=== PATIENT | female | born 1935 | race Caucasian/White ===

== ENCOUNTER 2016-06-18 10:59 | Inpatient (IN) | payer OTHER, MEDICAID ==
[~2016-06-18] VITALS: Ht 154.9 cm; Wt 64.2 kg
[~2016-06-18 10:59] MED LIST: APAP/HYDROCODON1 T13 PO; BENAZEPRIL HYDR40 M1 PO; DEC150 PO; ECO81 PO; FER300 PO; LIPI20 PO; METFORMIN HCL500 MG PO; PROMETHAZI6.25 MG/5 PO; THERAGRAN-M1 TA4 PO; TRAMADOL HCL50 MG PO
--- NOTE | 2016-06-18 11:11 | NUR ---
PT WHEELED TO ORTHO ROOM
--- NOTE | 2016-06-18 11:21 | NUR ---
81Y/O FEMALE BIB WHEELED TO BED ORTHO, WITH SON, REPORTING CONFUSION AND WEAKNESS SINCE YESTERDAY. PT IS WHEELCHAIR BOUND DUE TO BILAT KNEE PAIN. PT IS ORIENTED TO NAME ONLY AT THIS TIME. PT IS CONCERNED ABOUT SOILING HERSELF AND REQUESTING A PAMPER. SON AT BEDSIDE. DR WALDO LAMBED MSE
[2016-06-18 11:43] LABS: BASOPHIL % 0.6 % (0-2); PLATELET COUNT 280 x10^3mcL (130-400)
[2016-06-18 11:44] LABS: RED CELL DISTRIBUTION WIDTH 15.4 % (11.5-14.5)
[2016-06-18 11:50] LABS: CALCIUM 8.8 mg/dL (8.5-10.1); CARBON DIOXIDE 26.8 mmol/L (21-32); CHLORIDE SERUM 94 mmol/L (98-107); CREATININE SERUM 0.6 mg/dL (0.6-1.0); GLUCOSE SERUM 127 mg/dL (74-106); POTASSIUM SERUM 4.6 mmol/L (3.5-5.1); SODIUM SERUM 128 mmol/L (136-145)
[2016-06-18 11:54] LABS: ALBUMIN 3.9 g/dL (3.4-5.0); ALKALINE PHOSPHATASE 162 U/L (46-116); ALT/SGPT 17 U/L (14-59); AST/SGOT 25 U/L (15-37); BILIRUBIN TOTAL 0.54 mg/dL (0.20-1.00)
--- NOTE | 2016-06-18 12:13 | NUR ---
INDWELLING ARZOLA CATHETER INSERTED USING STERILE TECHNIQUE. PT TOLERATED WELL. URINE SAMPLE SENT TO LAB.
[2016-06-18 12:47] LABS: microscopic required? YES; urine erythrocyte TRACE (NEGATIVE)
[2016-06-18] MEDS ORDERED: NORCO1 TA2 PO (13:25)
[2016-06-18] MEDS ORDERED: AYR BABY SALINE30 ML (13:25)
--- NOTE | 2016-06-18 13:48 | NUR ---
REPORT GIVEN TO LA NENA ROSENTHAL FOR PT TO GO TO TELE BED
[2016-06-18 14:39] VITALS: BP 110/53
[2016-06-18 14:47] LABS: PHOSPHOROUS 3.2 mg/dL (2.5-4.9)
[2016-06-18 14:52] LABS: CHOLESTEROL/HDL RATIO 3.1; MAGNESIUM 1.4 mg/dL (1.8-2.4)
[2016-06-18 14:55] LABS: T3 TOTAL 0.74 ng/mL
[2016-06-18 14:56] LABS: AMPHETAMINE QUAL UR NONE DETECTED (NEG <=1000)
--- NOTE | 2016-06-18 14:56 | NUR ---
RECEIVED PATIENT FROM ED VIA GUERNEY, PATIENT IN NO ACUTE DISTRESS, C/O PAIN TO BLE WILL MEDICATE ORDERED, FAMILY AT BEDSIDE, PATIENT WITH ARZOLA CATH DRAINING YELLOW URINE TO GRAVITY, ORIENTED PATIENT TO ROOM AND SURROUNDINGS, BED IN LOW POSITION, BED RAILS UP X 2, CALL LIGHT WIHTIN REACH, WILL ENDORSE CARE TO TONJA.
[2016-06-18 14:57] LABS: FREE T4 1.17 ng/dL (0.76-1.46); T4(THYROXINE) 10.8 ug/dL (4.7-13.3)
--- NOTE | 2016-06-18 15:45 | NUR ---
PATIENT HAS ARZOLA PLACED IN ER, DRAINING YELLOW URINE. SPOKE TO DR. BARRERA REGARDING NECESSITY OF ARZOLA. PER PATIENT AND PATIENT'S SON ABLE, PATIENT DOES NOT HAVE URINARY RETENTION OR COMPLAINTS. DR. BARRERA STATES HE WILL PLACE ORDER TO D/C. WILL FOLLOW UP.
[2016-06-18 17:13] VITALS: BP 105/53
--- NOTE | 2016-06-18 17:27 | NUR ---
IN TO SEE PATIENT AT THIS TIME. PATIENT STATES PAIN TO BLE HAS DECREASED. PATIENT IS EATING DINNER. SON IS AT THE BEDSIDE. WILL CONTINUE TO MONITOR.
--- NOTE | 2016-06-18 18:20 | NUR ---
ARZOLA REMOVED AT THIS TIME. PATIENT TOLERATED WELL. FAMILY AT THE BEDSIDE.
--- NOTE | 2016-06-18 19:30 | NUR ---
RECEIVED REPORT FROM ARIADNA EVANGELISTA. PT RESTING COMFORTABLY IN BED, IN NO ACUTE DISTRESS OR DISCOMFORT. AAOX4. DENIES OF MARTE/DIZZINESS. ON TELE MON 21 ST. DENIES OF ANY CHEST DISCOMFORT. PER PULSES MOD. NEG ON EDEMA. SCDS APPLIED. IN RA WITH SAT OF 96%. BREATHING EVENLY AND UNLABORED. NO SOB NOTED. LUNGS CTA. BS ACTIVE. ABD SOFT AND NON DISTENDED. LAST BM 06/17/16. PT INTERM URINE INCONTINENT. WILL BE PROVIDED WITH BEDPAN NEEDED. WEAKNESS ON BLE. FALL RISK PT. SKIN DRY AND INTACT. DENIES OF PAIN AT THIS TIME. IV ON RAC PATENT. FAMILY IS ON THE BEDSIDE. SAFETY MEASURES ENSURED. INSTRUCTED PT TO CALL FOR ANY NEEDS/ASSISTANCE. CALL LIGHT WITHIN REACH. WILL CONT TO MONITOR PT.
[2016-06-18 22:00] VITALS: BP 91/42
[2016-06-19] VITALS (7 sets, daily range): BP systolic 101–132; BP diastolic 43–65
--- NOTE | 2016-06-19 01:14 | NUR ---
500 CC BOLUS STARTED PER ORDER WITH BP OF 104/43 (63) MAP AND HR OF 83.
--- NOTE | 2016-06-19 02:15 | NUR ---
500 CC OF BOLUS ADMINISTRATION DONE. BP AT 101/52 (68) MAP, 85 HR. PT IN NO ACUTE DISTRESS. SAFETY MEASURES ENSURED. CALL LIGHT WITHIN REACH.
--- NOTE | 2016-06-19 05:39 | NUR ---
PT SLEPT COMFORTABLY THROUGH OUT THE NIGHT. WAS IN NO ACUTE DISTRESS OR DISCOMFORT. SAFETY MEASURES ENSURED. CALL LIGHT WITHIN REACH.
[2016-06-19 07:09] LABS: BASOPHIL % 0.8 % (0-2); PLATELET COUNT 215 x10^3mcL (130-400)
[2016-06-19 07:12] LABS: RED CELL DISTRIBUTION WIDTH 15.2 % (11.5-14.5)
--- NOTE | 2016-06-19 07:30 | NUR ---
RECEIVED PATIENT AWAKE AND ALERT DENIES PAIN, NO ACUTE DISTRESS NOTED, SPEAKING ONLY. ABLE TO ASKING FOR NEEDS. IV SITE LEAKING D/C AND INTACT. WILL RESTART AFTER PATIENT FINISH EATING, REPOSITION UP IN BED WITH 2 MAX ASSIST, CALL LIGHT WITHIN REACH.
[2016-06-19 07:33] LABS: CARBON DIOXIDE 23.5 mmol/L (21-32); CHLORIDE SERUM 101 mmol/L (98-107); CREATININE SERUM 0.8 mg/dL (0.6-1.0); GLUCOSE SERUM 96 mg/dL (74-106); MAGNESIUM 2.4 mg/dL (1.8-2.4); PHOSPHOROUS 3.8 mg/dL (2.5-4.9); POTASSIUM SERUM 4.1 mmol/L (3.5-5.1); SODIUM SERUM 133 mmol/L (136-145)
--- NOTE | 2016-06-19 08:25 | NUR ---
PATIENT SIT UP IN BED EATING AT THIS TIME, DTR REMAIN AT BEDSIDE. DR. CASTRO AND TEAM ROUND, ANSWER ALL QUESTIONS PER PT'S CONCERN AND PER MD WILL ORDER PT EVAL AND TX.
--- NOTE | 2016-06-19 09:49 | NUR ---
PATIENT RESTING IN BED NO DISTRESS NOTED, DUE MEDS GIVEN, PATIENT ASKING FOR PAIN MED FOR RLE 5/10, NORCO 1 TAB PO GIVEN, REPOSITIONED FOR COMFORT, CONT TO MONITOR.
--- NOTE | 2016-06-19 11:17 | NUR ---
NEW IV RESTART TO LFA # 22 BY STUDENT WITH INSTRUCTOR, ROCEPHIN IVPB GIVEN, PATIENT RESTING IN BED NO COMPLAINTS. FAMILY MEMBERS AT BEDSIDE.
--- NOTE | 2016-06-19 14:15 | NUR ---
PATIENT RESTING IN BED NO DISTRESS NOTED, PAIN IS RELIEF PER SON. NEEDS ANTICIPATED. CONT TO MONITOR.
--- NOTE | 2016-06-19 15:44 | NUR ---
P.T. NOTES/INITIAL EVAL 2797-7612 Pt WAS ADMITTED DUE TO ANS D/O; Pt LIVES IN 1-TERRANCE HOUSE W/ SON (CAREGIVER), NON AMBULATORY, ASSISTED IN W/C TRANSFERS & SOME ADLs, HOMEMAKER; HAS HOSP BED, W/C, S/C, BSC, FWW. S:Pt WAS SEEN AWAKE & ALERT IN BED, SPEAKS IRISH, ABLE TO FOLLOW SIMPLE COMMANDS W/ TACTILE & GESTURE CUES, PREFERS SON TO TRANSLATE AT THIS TIME, SON IN ROOM & SUPPORTIVE; NO C/O PAIN OR DIZZINESS AT THIS TIME; ORIENTED x3, AGREEABLE & COOPERATIVE W/ P.T.; OWN W/C IN ROOM. O:BED MOBILITY: MIN ASSIST IN SUPINE TO SIT, MOD ASSIST+2 PERSONS IN SCOOTING TOWARDS HOB; CG ASSIST IN SCOOTING IN SITTING TOWARDS EOB TRANSFERS: UNABLE GAIT: NON AMBU Pt ASSISTED TO BED SAFELY; HOB ELEVATED, CALL JO, PHONE, TABLE IN REACH; BED ALARM ON; DECLINED SCDs AT THIS TIME, ON ROOM AIR; APPRECIATIVE. A:Pt DEMO GOOD RESPONSE TO P.T. SESSION; FALL RISK; Pt EDUC ON SAFE TASK SEQUENCING, HEP, USE OF CALL LIGHT FOR NURSE ASSIST, DEMO UNDERSTANDING, FAIR FOLLOW THRU. P:CONT PT ONCE DAILY 5X/WK X 1 WK; POC & DX DISCUSSED W/ MANAGER GAMES; WILL BENEFIT W/ P.T. DURING ACUTE STAY; 2-PERSON ASSIST FOR OOB ACT AT THIS TIME. EVAL23,2PA GCODES:[id number] [facility] REACH SCORE:22 inches [id number] Pt WAS GIVEN THERA EXER UE/LE X 10 REPS; CONT PT EX
--- NOTE | 2016-06-19 16:55 | NUR ---
PATIENT SON ASSIST PATIENT TO BATHROOM AND BACK TO BED VIA WHEEL CHAIR, MAX 2 KEG WASHER, REPOSITIONED IN BED, TECH WILL PERFORM ECHO ON PATIENT AT THIS TIME, BS 121 NO COVERAGE NEEDED. CONT TO MONITOR.
--- NOTE | 2016-06-19 17:20 | NUR ---
PATIENT RESTING IN BED NO COMPLAINTS, TECH IN ROOM GET READY TO PERFORM ECHO, SON AT BEDSIDE ASSISTING WITH TRANSLATION IN ITALIAN, DUE MEDS GIVEN, NEEDS ANTICIPATED, CONT TO MONITOR.
--- NOTE | 2016-06-19 20:00 | NUR ---
PT A/A/O X4. DENIES DIZZINESS AND HEADACHE. BREATH SOUNDS DIMINISHED CHESTER BASES. BREATHING EVEN AND UNLABORED ON ROOM AIR. DENIES CHEST PAIN AND PRESSURE. BOWEL SOUNDS ACTIVE. NO C/O N/V AND ABD PAIN. IV INTACT ON THE LEFT FOREARM INFUSING WITH NS AT 100 ML/HR. MADE PT COMFORTABLE. PLACED CALL LIGHT WITH IN REACH. WILL CONTINUE TO MONITOR.
--- NOTE | 2016-06-20 01:16 | NUR ---
PT RESTING WITH EYES CLOSED. NO DISTRESS AND DISCOMFORT NOTED. MADE PT COMFORTABLE. WILL CONTINUE TO MONITOR.
--- NOTE | 2016-06-20 05:39 | NUR ---
PT QUIET AND RESTING. NO SIGNIFICANT CHANGES NOTED THUS FAR. IV INTACT AND INFUSING ORDERED. MADE PT COMFORTABLE. WILL ENDORSE TO THE AM NURSE ACCORDINGLY.
[2016-06-20 06:33] VITALS: BP 130/66
[2016-06-20 07:10] LABS: BASOPHIL % 1.3 % (0-2); PLATELET COUNT 208 x10^3mcL (130-400)
[2016-06-20 07:12] LABS: CALCIUM 8.1 mg/dL (8.5-10.1); CARBON DIOXIDE 23.6 mmol/L (21-32); CHLORIDE SERUM 105 mmol/L (98-107); CREATININE SERUM 0.7 mg/dL (0.6-1.0); GLUCOSE SERUM 85 mg/dL (74-106); POTASSIUM SERUM 4.5 mmol/L (3.5-5.1); SODIUM SERUM 136 mmol/L (136-145)
--- NOTE | 2016-06-20 07:20 | NUR ---
RECEIVED PATIENT AWAKE AND ALERT IN BED, DENIES PAIN, NO ACUTE DISTRESS NOTED, IV INTACT, NEEDS ANTICIPATED. CALL LIGHT WITHIN REACH.
[2016-06-20 07:22] LABS: RED CELL DISTRIBUTION WIDTH 15.3 % (11.5-14.5)
--- NOTE | 2016-06-20 08:20 | NUR ---
DR CASTRO AND TEAM ROUND AT THIS TIME, DISCUSS POC AND TX WITH PATIENT AND GRAND-DTR AT BEDSIDE. PLAN TO CONT PT TX.
--- NOTE | 2016-06-20 09:28 | NUR ---
MEDICATE PATIENT FOR PAIN PRIOR WORKING WITH PT. SON AT BEDSIDE WITH PATIENT.
[2016-06-20 10:18] VITALS: BP 119/62
--- NOTE | 2016-06-20 11:11 | NUR ---
PT working with patient at this time, checking for tele box, per family nurse already removed.
--- NOTE | 2016-06-20 13:14 | NUR ---
PT HERE TO ASSIST PATIENT BACK TO BED FROM WHEEL CHAIR, DUE MEDS GIVEN, CONT TO MONITOR. CALL LIGHT WITHIN REACH.
--- NOTE | 2016-06-20 14:40 | NUR ---
ASSISTING PATIENT ON BED, PATIENT INCONT OF URINE. INSTRUCT TO CALL NURSE WHEN DONE. GRAND-DTR REMAIN AT BEDSIDE.
--- NOTE | 2016-06-20 14:47 | NUR ---
PT NOTES TIME: [id number] TE28',TA10',2PA((2)SAFETY/SUPPORT),PVE((1)STANDBY SAFETY/SETUP) S:CHART REVIEWED AND CLEARED FOR PT BY RN. PATIENT SUPINE RESTING TALKING ON PHONE. PATIENT DENIES PAIN OR SOB AT THIS TIME AND IS AGREEABLE TO PARTICIPATE IN THERAPY. IV LINE INTACT. O:BED: MODx2/MAX SUPINE<->SIT WITH VC'S AND TC'S FOR PROPER HAND PLACEMENT/SEQUENCING TO MAINTAIN PROPER BODY MECHANICS. NO DIZZINESS EXPRESSED. BP 114/42, SPO2 ON RA 98%, HR 100. TRANSFER: MAXx2 SIT<->STAND WITH PIVOT TRANSFER TO W/C. VC'S PROVIDED TO SAFELY MAINTAIN URPIGHT POSTURE AND MOD ASSIST TO BRACE BILATERAL KNEES. GAIT: NON AMB, UNABLE TO MAINTAIN UPRIGHT STANCE. TE: SEATED BICYCLE KICKS, ANKLE ROM IN ALL PLANES, SHOULDER SHRUGS/CIRCLES, GLUTEAL SETS, LATERAL WEIGHSHIFTING TO PRESSURE RELIEF, FORWARD REACH WHILE CROSSING MIDLINE TO ENCOURAGE SEATED CORE STABILITY (ALL TOLERATED). PATIENT EDUCATED WITH HEP, TRANSFERS, ENERGY CONSERVATION, POSTURAL AWARENESS WITH VERBAL UNDERSTANDING. PATIENT MADE COMFORTABLE IN W/C WITH TRAY AND CALL LIGHT IN REACH. LEFT IN CARE OF GRAND-DAUGHTER, TRAY AND CALL LIGHT IN REACH. PATIENT COOPERATIVE AND APPRECIATIVE OF PT CARE, RN MADE AWARE. P:CONT WITH POC, PROGRESS DISCUSSED WITH PRIMARY PT. RETURN BTB TIME: 3431-6532 TA15',2PA((1)SAFETY/SUPPORT) RETURNED TO PATIENTS ROOM TO ASSIST PATIENT SAFETY BTB. PATIENT ASSISTED WITH MAXx2 ASSIST WITH FWW BTB. VC'S AND TC'S PROVIDED TO MAINTAIN SAFETY AND PACING. NO PAIN OR DISCOMFORT EXPRESSED BY PATIENT ONLY FATIGUE/SLEEPY. PATIENT MADE COMFORTABLE IN BED WITH ALL LINES INTACT, TRAY AND CALL LIGHT IN REACH, NO FAMILY AT BEDSIDE. PATIENT COOPERATIVE AND APPRECIATIVE OF PT CARE, RN MADE AWARE.
--- NOTE | 2016-06-20 17:11 | NUR ---
PATIENT RESTING IN BED OFFERED PAIN MED PATIENT REFUSED, DUE MEDS GIVEN, SON REMAIN AT BEDSIDE, RFID SYSTEMS ARCHITECT IN ROOM TO TAKING VITAL. CALL LIGHT WITHIN REACH.
[2016-06-20 17:51] VITALS: BP 131/77
--- NOTE | 2016-06-20 19:35 | NUR ---
RECEIVED Pt AAOX3 CALM AND COOPERATIVE WITH CARE. DENIES ANY CHEST PAIN. LUNG SOUNDS ARE CTA, DIMINISHED BILATERALLY. PULSE OX IS 96% ON ROOM AIR. ACTIVE BOWEL SOUNDS X4 QUADS. DENIES ANY ABD DISCOMFORT. IV SITE TO LFA IS PATENT. C/O BILATERAL SHOULDER AND BLE PAIN AT 6/10. SKIN IS INTACT. VOIDS FREELY WITH INCONTINENCE EPISODES. RADIAL AND PEDAL PULSES ARE PRESENT. MOVES ALL EXTREMITIES, NO EDEMA NOTED. RE-ORIENTED TO ROOM AND CALL LIGHT SYSTEM WITHIN EASY REACH. WILL CONTINUE TO MONITOR.
[2016-06-20 21:16] VITALS: BP 187/61
--- NOTE | 2016-06-20 23:24 | NUR ---
Pt RESTING COMFORTABLY. CALL LIGHT WITHIN REACH. WILL CONTINUE TO MONITOR.
--- NOTE | 2016-06-21 02:34 | NUR ---
Pt RESTING QUIETLY. WILL CONTINUE TO MONITOR.
--- NOTE | 2016-06-21 05:33 | NUR ---
NO SIGNIFICANT CHANGES NOTED OVER NIGHT. NO FURTHER C/O LEG OR SHOULDER PAIN. VOIDED FREELY, NO BM. IV SITE PATENT. SAFETY AND COMFORT MEAUSURES REMAIN IN PLACE. WILL CONTINUE TO MONITOR.
[2016-06-21 05:41] VITALS: BP 136/60
--- NOTE | 2016-06-21 06:08 | NUR ---
C/O BILATERAL LEG PAIN AT 6/10, MEDICATED WITH NORCO PO. WILL CONTINUE TO MONITOR.
[2016-06-21 06:24] LABS: BASOPHIL % 0.9 % (0-2); PLATELET COUNT 203 x10^3mcL (130-400)
[2016-06-21 06:28] LABS: CALCIUM 7.8 mg/dL (8.5-10.1); CARBON DIOXIDE 22.7 mmol/L (21-32); CHLORIDE SERUM 105 mmol/L (98-107); CREATININE SERUM 0.7 mg/dL (0.6-1.0); GLUCOSE SERUM 77 mg/dL (74-106); MAGNESIUM 1.4 mg/dL (1.8-2.4); POTASSIUM SERUM 4.1 mmol/L (3.5-5.1); SODIUM SERUM 136 mmol/L (136-145)
[2016-06-21 06:32] LABS: RED CELL DISTRIBUTION WIDTH 15.3 % (11.5-14.5)
--- NOTE | 2016-06-21 06:53 | NUR ---
I HAVE REVIEWED THE DATA COLLECTION BY SHER (NAME):MEDARDO AMBRIZ ENTERED ON (DATE/TIME):06/21/16 @ 1999 I CONCUR WITH THE DATA AND ANY EXCEPTIONS OR COMMENTS ARE LISTED BELOW:
--- NOTE | 2016-06-21 06:59 | NUR ---
PAGEGATED DR. ORTIZ REGARDING MAG 1.4. WILL ENDORSE TO INCOMING NURSE FOR FOLLOW UP.
--- NOTE | 2016-06-21 07:45 | NUR ---
RECEIVED THE PATIENT AWAKE AND ORIENTED TO PERSON AND PLACE ONLY AT THIS TIME. REORIENTED PATIENT TO TIME. PATIENT DENIED SHORTNESS OF BREATH OR NAUSEA/VOMITING. PATIENT STATED HAVING ACHING TO RLE BUT TOLERABLE AT THIS TIME. IVF NS VIA H/L TO LFA. CALL LIGHT WITHIN REACH. SIDE RAILS UP X3. BED ALARM WAS ON.
--- NOTE | 2016-06-21 08:03 | NUR ---
DR. CASTRO AND THE TEAM WERE MAKING ROUND TO SEE THE PATIENT. THE CARE PLAN WAS EXPLAINED TO THE PATIENT IN KOREAN VIA MAGENTO DEVELOPER, BECKIE Johnson RN. THE PATIENT VERBALIZED UNDERSTANDING.
[2016-06-21 10:28] VITALS: BP 98/57
[2016-06-21 14:13] VITALS: BP 98/57
--- NOTE | 2016-06-21 14:41 | NUR ---
PT NOTES TIME 8925-6241 S: CLEARED BY RN FOR P.T. TX. PATIENT IS AWAKE & ALERT IN A SEMI VARELA POSITION IN BED. AGREEABLE TO P.T. TX. C/O BILAT KNEE PAIN & SHOULDER PAIN 10/12. RN IS AWARE, BUT PATIENT MEDICATED FOR PAIN. O: BED MOBILITY: SUPINE>SIT MOD/MIN ASSIST. SCOOTING W/ MOD/MIN ASSIST. PATIENT GIVEN VC TO USE SIDERAIL TO ASSIST IN BED MOBILITY. WHILE SEATED AT EOB, PATIENT REQUIRES WT. SHIFTING ACTIVITIES TO IMPROVE TRUNK CONTROL. ADDITIONAL VC GIVEN FOR IMPROVE POSTURAL ALIGNMENT. TRANSFER: STAND PIVOT TRANSFER MAX ASSIST OF 2. REQUIRES VC W/ SEQUENCING FOR STAND PIVOT TRANSFER. W/C MGMT: 45FT W/ MODERATE ASSIST. PATIENT HAS DIFFICULTY MANUEVERING W/C. TENDS TO VEER TO THE LEFT. EASILY FATIGUES & REQUIRES MULTIPLE REST PERIODS. ASSISTANCE GIVEN W/ MANUEVERING W/C SAFELY AROUND OBSTACLES & DIRECTIONAL CHANGES. EDUCATED GRANDDAUGHTER/PATIENT ON W/C MGMT, HEP, & SAFETY FOR FALL PREVENTION W/ G UNDERSTANDING. COOPERATIVE & APPRECIATIVE OF CARE. THER EX HIP FLEXION, KNEE FLEXION, BILAT UE FORWARD PUNCHES, ELBOW FLEX/EXT X 10 REPS W/ REST BREAKS IN BETWEEN. PATIENT IS SAFELY & COMFORTABLY IN A SEMI VARELA POSITION IN BED W/ CALL BUTTON & TABLE IN REACH. LEFT IN CARE OF GRANDDAUGHTER. RN NOTIFEID. P: DISCUSSED W/ PRIMARY THERAPIST TA15', WC MGMT15', TE8',2PA(2) TIME [id number] RETURNED TO PATIENT ROOM. RN IS AWARE. PATIENT REQUESTING TO RETURN BTB. STAND PIVOT TRANSFER MAX ASSIST OF 2. SIT>SUPINE W/ MOD/MIN ASSIST OF 2. PATIENT IS SAFELY & COMFORTABLY IN A SEMI VARELA POSITION IN BED W/ CALL BUTTON & TABLE IN REACH. BED ALARM ON. RN NOTIFIED. TA10',2PA
--- NOTE | 2016-06-21 15:30 | NUR ---
DISCHARGE INSTRUCTION AND PRESCRIPTION WERE EXPLAINED THOROUGHLY AND HANDED TO THE PATIENT'S SON, CHRISTOPHER HILL. ALL QUESTIONS WERE ADDRESSED AND BOTH VERBALIZED UNDERSTANDING. H/L WAS REMOVED WITH CATH INTACT. ID BAND WAS REMOVED. THE PATIENT WAS TAKEN TO THE DISCHARGE OFFICE VIA HER OWN WHEELCHAIR IN STABLE CONDITION. ALL BELONGINGS WERE SENT HOME WITH THE PATIENT UPON DISCHARGE.
== END 2016-06-21 15:33 | disposition home health service (06) | DRG 312 ==
LOC: ED 10:59 → DU 13:16 → MU 13:16 → DU 14:22 → MU 06-20 10:21
PROVIDERS: Emergency Medicine; Family Medicine; ADMIT Family Medicine
DX: R55 Syncope and collapse (principal); E87.1 Hypo-osmolality and hyponatremia; E87.70 Fluid overload, unspecified; G90.9 Disorder of the autonomic nervous system, unspecified; I70.0 Atherosclerosis of aorta; I34.0 Nonrheumatic mitral (valve) insufficiency; E83.42 Hypomagnesemia; I10 Essential (primary) hypertension; R73.03 Prediabetes; D50.9 Iron deficiency anemia, unspecified; M19.90 Unspecified osteoarthritis, unspecified site; Z68.26 Body mass index [BMI] 26.0-26.9, adult; Z79.82 Long term (current) use of aspirin; Z99.3 Dependence on wheelchair
CPT/HCPCS: 80307; 82962; 83880; 84439; 97110-GP; 97530-GP; 97542-GP; J0696; J1885; J1956; J2270; J3475; J7030; Q0092

== ENCOUNTER 2016-12-21 15:18 | Inpatient (IN) | payer OTHER, MEDICAID ==
[~2016-12-21] VITALS: Ht 152.4 cm; Wt 68.2 kg
[~2016-12-21 15:18] MED LIST changes: +AYR BABY SALINE30 ML; +NORCO1 TA2 PO
[2016-12-21 18:35] LABS: BASOPHIL % 0.3 % (0-2); PLATELET COUNT 206 x10^3mcL (130-400); RED CELL DISTRIBUTION WIDTH 14.3 % (11.5-14.5)
[2016-12-21 18:45] LABS: CALCIUM 8.6 mg/dL (8.5-10.1); CARBON DIOXIDE 28.3 mmol/L (21-32); CHLORIDE SERUM 102 mmol/L (98-107); CREATININE SERUM 0.9 mg/dL (0.6-1.0); GLUCOSE SERUM 164 mg/dL (74-106); POTASSIUM SERUM 3.7 mmol/L (3.5-5.1); SODIUM SERUM 136 mmol/L (136-145)
[2016-12-21 18:50] LABS: ALKALINE PHOSPHATASE 120 U/L (46-116); ALT/SGPT 24 U/L (14-59); AST/SGOT 21 U/L (15-37); BILIRUBIN TOTAL 0.25 mg/dL (0.20-1.00); TOTAL PROTEIN, SERUM 6.6 g/dL (6.4-8.2)
[2016-12-21 18:52] VITALS: BP 142/59
[2016-12-21 18:54] LABS: ALBUMIN 3.2 g/dL (3.4-5.0)
[2016-12-21 18:57] LABS: MAGNESIUM 1.5 mg/dL (1.8-2.4); PHOSPHOROUS 3.9 mg/dL (2.5-4.9)
[2016-12-21 18:58] LABS: T3 TOTAL 1.36 ng/mL
[2016-12-21 19:03] LABS: FREE T4 1.35 ng/dL (0.76-1.46); FREE THYROXINE INDEX 3.8 ug/dL (1.4-4.5); T4(THYROXINE) 9.9 ug/dL (4.7-13.3)
[2016-12-21 19:15] LABS: CHOLESTEROL/HDL RATIO 2.8
[2016-12-21 20:51] VITALS: BP 108/50
[2016-12-21 23:54] LABS: microscopic required? YES; urine erythrocyte NEGATIVE (NEGATIVE)
[2016-12-22 06:12] VITALS: BP 108/43
[2016-12-22 06:46] LABS: BASOPHIL % 0.7 % (0-2); PLATELET COUNT 207 x10^3mcL (130-400)
[2016-12-22 06:59] LABS: CALCIUM 8.4 mg/dL (8.5-10.1); CARBON DIOXIDE 26.1 mmol/L (21-32); CHLORIDE SERUM 102 mmol/L (98-107); CREATININE SERUM 0.9 mg/dL (0.6-1.0); GLUCOSE SERUM 111 mg/dL (74-106); MAGNESIUM 2.4 mg/dL (1.8-2.4); POTASSIUM SERUM 3.9 mmol/L (3.5-5.1); SODIUM SERUM 136 mmol/L (136-145)
[2016-12-22 08:10] LABS: RED CELL DISTRIBUTION WIDTH 14.7 % (11.5-14.5)
[2016-12-22 09:45] VITALS: BP 113/42
[2016-12-22 16:21] VITALS: BP 114/55
[2016-12-22 22:02] VITALS: BP 78/28
[2016-12-22 22:29] VITALS: BP 96/50
[2016-12-22 23:09] VITALS: BP 96/50
[2016-12-23 01:56] VITALS: BP 108/54
[2016-12-23 05:40] VITALS: BP 93/39
[2016-12-23 06:04] LABS: CALCIUM 7.6 mg/dL (8.5-10.1); CARBON DIOXIDE 25.1 mmol/L (21-32); CHLORIDE SERUM 102 mmol/L (98-107); CREATININE SERUM 0.9 mg/dL (0.6-1.0); GLUCOSE SERUM 100 mg/dL (74-106); POTASSIUM SERUM 4.4 mmol/L (3.5-5.1); SODIUM SERUM 133 mmol/L (136-145)
[2016-12-23 06:51] LABS: BASOPHIL % 0.7 % (0-2); PLATELET COUNT 165 x10^3mcL (130-400)
[2016-12-23 06:52] LABS: RED CELL DISTRIBUTION WIDTH 14.6 % (11.5-14.5)
[2016-12-23 09:10] VITALS: BP 94/41
[2016-12-23 13:43] VITALS: BP 114/47
[2016-12-23 16:20] VITALS: BP 136/47
[2016-12-23 20:41] VITALS: BP 107/47
[2016-12-24 00:45] VITALS: BP 108/76
[2016-12-24 05:48] VITALS: BP 141/54
[2016-12-24 06:12] LABS: BASOPHIL % 0.5 % (0-2); PLATELET COUNT 170 x10^3mcL (130-400); RED CELL DISTRIBUTION WIDTH 13.9 % (11.5-14.5)
[2016-12-24 06:36] LABS: CALCIUM 7.8 mg/dL (8.5-10.1); CARBON DIOXIDE 24.4 mmol/L (21-32); CHLORIDE SERUM 103 mmol/L (98-107); CREATININE SERUM 0.8 mg/dL (0.6-1.0); GLUCOSE SERUM 94 mg/dL (74-106); MAGNESIUM 1.7 mg/dL (1.8-2.4); PHOSPHOROUS 4.1 mg/dL (2.5-4.9); POTASSIUM SERUM 4.5 mmol/L (3.5-5.1); SODIUM SERUM 132 mmol/L (136-145)
[2016-12-24 07:59] LABS: rbc morphology (normal/abnorm) ABNORMAL (NORMAL)
[2016-12-24 09:53] VITALS: BP 91/24
[2016-12-24 13:11] VITALS: BP 106/58
[2016-12-24 14:20] VITALS: BP 106/58
[2016-12-24] MEDS ORDERED: APAP/HYDROCODON1 T13 PO (14:24)
[2016-12-24] MEDS ORDERED: IBUPROFEN400 MG PO (14:26)
== END 2016-12-24 15:50 | disposition home health service (06) | DRG 533 ==
LOC: ED 15:18 → DU 17:52 → MU 12-23 12:05 → DU 12-23 23:50
PROVIDERS: Emergency Medicine; Family Medicine; Neuromusculoskeletal Medicine, Sports Medicine; ADMIT Family Medicine
PROC: 2W3MX2Z Immobilization of Left Lower Extremity using Cast (ICD-10-PCS; principal; 2016-12-22 13:00)
DX: S72.452A Displaced supracondylar fracture without intracondylar extension of lower end of left femur, initial encounter for closed fracture (principal); N17.0 Acute kidney failure with tubular necrosis; N39.0 Urinary tract infection, site not specified; D68.69 Other thrombophilia; E44.0 Moderate protein-calorie malnutrition; M62.58 Muscle wasting and atrophy, not elsewhere classified, other site; D64.9 Anemia, unspecified; E11.65 Type 2 diabetes mellitus with hyperglycemia; E83.51 Hypocalcemia; E78.5 Hyperlipidemia, unspecified; E83.42 Hypomagnesemia; I34.0 Nonrheumatic mitral (valve) insufficiency; I36.1 Nonrheumatic tricuspid (valve) insufficiency; I10 Essential (primary) hypertension; M17.0 Bilateral primary osteoarthritis of knee; Y93.89 Activity, other specified; Z91.81 History of falling; Z99.3 Dependence on wheelchair; Z79.82 Long term (current) use of aspirin; Z79.84 Long term (current) use of oral hypoglycemic drugs; Z68.29 Body mass index [BMI] 29.0-29.9, adult; W05.0XXA Fall from non-moving wheelchair, initial encounter; Y92.018 Other place in single-family (private) house as the place of occurrence of the external cause
CPT/HCPCS: 82962; 83880; 84439; 97110-GP; 97530-GP; J0696; J1170; J1644; J1885; J2270; J2916; J3475; J7030; J7040